=== PATIENT | male | born 1985 | race Caucasian/White ===

== ENCOUNTER 2024-04-21 13:51 | Emergency (ER) | payer OTHER ==
[~2024-04-21] VITALS: Ht 182.9 cm; Wt 77.1 kg
[2024-04-21] MEDS ORDERED: IBUPROFEN 600 MG TABLET ONE (14:58)
[2024-04-21] MEDS: IBUPROFEN 600 MG TABLET PO ONE (15:00)
[2024-04-21 16:05] VITALS: BP 110/80; TEMP 97; O2SAT 99
== END 2024-04-21 15:30 | disposition home or self-care (01) ==
LOC: ER 13:51
DX: F41.9 Anxiety disorder, unspecified (principal); R20.2 Paresthesia of skin; R51.9 Headache, unspecified; F17.200 Nicotine dependence, unspecified, uncomplicated
CPT/HCPCS: A4606; A4663